=== PATIENT | female | born 1970 | race African-American/Black ===

== ENCOUNTER 2018-01-17 16:35 | Emergency (ER) | payer BC ==
[~2018-01-17] VITALS: Ht 160 cm; Wt 65.8 kg
--- NOTE | ~2018-01-17 | EKG ---
[place] [address] [facility] [employer] [place] [address] ELECTROCARDIOGRAM REPORT Name: LESLEYEDWIN Room #: DEP YEIMI Kam#: [id number] Admission: 01/17/18 Attend Phys: Discharge: 01/17/18 Date of : 72 Report #: [id number] THIS REPORT FOR: //name// [facility] ED Test Date: 2018-01-17 Test Time: 17:32:44 Pat Name: EDWIN SUTTON Department: Room: Gender: F [employer] Supervisor: CONNER : [id number] Requested By: Guero Giron Order Number: [id number] MD: Magen Garcia Measurements Intervals [place] Rate: 87 P: 41 [place]: 122 QRS: 55 QRSD: 90 T: 38 QT: 356 QTc: 429 Interpretive Statements Sinus rhythm RSR' in V1 or V2, right VCD No previous ECG available for comparison Electronically Signed On 01-18-2018 7:50:38 CDT by Magen Garcia [email or web address] <ELECTRONICALLY SIGNED> By: Magen Garcia MD, [facility] 01/18/18 0750 1732 1732 Magen Garcia MD, FACC /EPI
[2018-01-17] MEDS ORDERED: UNICOMPLEX M TA1 TA1 PO (17:04)
[2018-01-17] MEDS ORDERED: ALLEGRA ALLERGY60 MG PO (17:04)
[2018-01-17] MEDS ORDERED: BENADRYL ALLERG25 MG PO (17:04)
[2018-01-17 17:36] LABS: HEMOGLOBIN 13.4 gm/dL (12.0-15.0); MCH 28.1 pg (26.0-34.0); MCHC 32.8 g/dL (28.0-37.0); MCV 85.7 fL (80.0-100.0); RBC 4.78 mil/uL (4.20-5.00); WBC 9.4 thou/uL (4.0-11.0)
[2018-01-17 17:44] LABS: ANION GAP 7 mmol/L (7-16); BUN 13 mg/dL (7-18); CALCIUM 9.4 mg/dL (8.5-10.1); CHLORIDE 102 mmol/L (98-107); CO2 28 mmol/L (21-32); GLUCOSE 169 mg/dL (74-106); POTASSIUM 3.3 mmol/L (3.5-5.1); SODIUM 137 mmol/L (136-145)
[2018-01-17 17:57] LABS: ALBUMIN 4.2 g/dL (3.4-5.0); SGOT 18 U/L (15-37); TOTAL BILIRUBIN 1.3 mg/dL (<0.1-1.0); TOTAL PROTEIN 8.3 g/dL (6.4-8.2); TROPONIN-I < 0.04 ng/mL (<0.06)
[2018-01-17 18:07] LABS: SGPT 18 U/L (30-65)
[2018-01-17] MEDS ORDERED: FLEXERIL PO (18:13)
[2018-01-17 19:05] VITALS: BP 137/78
== END 2018-01-17 19:07 | disposition home or self-care (01) ==
LOC: ER 16:35
PROVIDERS: Emergency Medicine
DX: I10 Essential (primary) hypertension (principal); Z90.710 Acquired absence of both cervix and uterus